=== PATIENT | male | born 1975 | race Hispanic/Latino ===

== ENCOUNTER 2024-05-30 10:32 | Emergency (ER) | payer OTHER, SELFPAY ==
--- OUTSIDE RECORDS SUMMARY | 2024-05-30 10:35 | XMS_ITS | Referral Summary ---
Author Organization [facility] Medical Office Building B Address [address] [place] [address] Care Team Providers Care Guest Service Manager Name Role Phone Leonid Matos POWER ELECTRONICS RESEARCH ENGINEER Unavailable [phone] Paul Ross MD Primary Care Provider [phone] Allergies No known active allergies Medications sildenafiL (VIAGRA) 100 mg tabletIndicatio ns:Erectile Dysfunction Take 1 tablet (100 mg total) by mouth daily as needed for erectile dysfunction (max of 1 per day) 20 tablet 11 04/18/20 21 Active multivitamin capsule Take 1 capsule by mouth daily Active testosterone cypionate (DEPO-TESTOTERO NE) 200 mg/mL injection INJECT ONE-HALF ML INTRAMUSCULARLY ONCE A WEEK 08/05/19 24 Active Active Problems Problem Noted Date Diagnosed Date Annual physical exam 02/26/2024 Assessment & Plan (02/26/2024 10:40 AM CDT): Discussed lifestyle modifications, diet and exercise. Routine blood work ordered/reviewed today. Yearly vision and dental examinations. Hyperpigmented skin lesion 11/06/2022 Assessment & Plan (11/06/2022 9:13 AM CDT): Currently at baseline, no acute flare. Referred to dermatology for further eval/mgmt. Family history of colon cancer 11/05/2022 Personal history of colonic polyps 11/05/2022 Mixed hyperlipidemia 09/06/2022 Assessment & Plan (02/26/2024 10:36 AM CDT): Lab Results Component Value Date CHOL 230 (H) 09/06/2022 CHOL 233 (H) 04/07/2018 Lab Results Component Value Date HDL 37 (L) 09/06/2022 HDL 40 04/07/2018 Lab Results Component Value Date LDLCALC 140 (H) 09/06/2022 LDLCALC 175 (H) 04/07/2018 Lab Results Component Value Date TRIG 267 (H) 09/06/2022 TRIG 92 04/07/2018 No results found for: POCCHDLR No results found for: POCNONHDL No results found for: POCCHLPL The 10-year ASCVD risk score (Sumanth ANDRE, et al., 2019) is: 3.1% Values used to calculate the score: Age: 48 years Sex: Male Is Non- : No Diabetic: No Tobacco smoker: No Systolic Blood Pressure: 110 mmHg Is BP treated: No HDL Cholesterol: 37 mg/dL Total Cholesterol: 230 mg/dL Recheck lipid panel and TSH Assessment & Plan (09/06/2022 11:16 AM CDT): Lab Results Component Value Date CHOL 233 (H) 04/07/2018 Lab Results Component Value Date HDL 40 04/07/2018 Lab Results Component Value Date LDLCALC 175 (H) 04/07/2018 Lab Results Component Value Date TRIG 92 04/07/2018 No results found for: POCCHDLR No results found for: POCNONHDL No results found for: POCCHLPL Not at goal Recheck lipid panel now Has been a few years If worse would recommend starting statin The ASCVD Risk score (Sumanth ANDRE, et al., 2019) failed to calculate for the following reasons: Cannot find a previous HDL lab Cannot find a previous total cholesterol lab Myalgia 03/02/2021 Assessment & Plan (03/03/2021 2:27 PM CDT): Urine dipstick done in office was negative for leukocytes, nitrites, blood or glucose. Specific gravity is 1.020. Increase water intake daily. Oral steroids prescribed to help with muscle pain. May use muscle relaxer bedtime as needed for muscle spasms. Erectile dysfunction 07/03/2019 Anxiety 07/03/2019 Assessment & Plan (09/06/2022 11:06 AM CDT): Stable - not concerns No longer taking his paxil Assessment & Plan (07/05/2019 6:42 PM CDT): Mild. Status post rotator cuff repair 06/03/2019 Arthritis of left acromioclavicular joint 2019 Overview (05/15/2019): Added automatically from request for surgery [id number] Bicipital tendinitis of left shoulder 05/15/2019 Overview (05/15/2019): Added automatically from request for surgery [id number] Impingement syndrome of left shoulder 05/15/2019 Overview (05/15/2019): Added automatically from request for surgery [id number] Chronic pain of left knee 01/03/2018 Overview (07/28/2018): S/p left arthroscopy surgery for torn cartilage 1999 Assessment & Plan (04/19/2020 2:40 PM MEDICAL NURSE): Worsening. Referred to ortho for further evaluation and management. In the meantime, patient may use ptqr-csk-zvqzxhl pain relievers of choice as needed. Zhvhw-kq-tmlbdg exercises demonstrated and encouraged. Assessment & Plan (07/28/2018 4:33 PM CDT): Referred to Ortho for further eval/tx. OTC pain reliever of choice. ROM exercises and strengthening exercises encouraged. Assessment & Plan (01/03/2018 12:45 PM CDT): Asx. Today, Rx for Ibuprofen given, use as directed. Follicular cyst of skin and subcutaneous tissue 12/03/2008 Resolved Problems Problem Noted Date Diagnosed Date Resolved Date Physical exam, annual 09/06/20222023 Assessment & Plan (02/26/2024 10:38 AM CDT): Discussed lifestyle modifications, diet and exercise. Routine blood work ordered/reviewed today. Yearly vision and dental examinations. Assessment & Plan (09/06/2022 11:01 AM CDT): Discussed lifestyle modifications, diet and exercise. Routine blood work ordered/reviewed today. Yearly vision and dental examinations. Right flank pain 03/02/2021 02/26/2024 Assessment & Plan (03/03/2021 2:27 PM CDT): Urine dipstick ordered. Left ankle swelling 03/02/2021 09/07/19 Assessment & Plan (03/03/2021 2:26 PM CDT): Elevate foot when possible. May use ice if ankle swells again. 20 minutes/hour as needed. Influenza vaccine refused 03/02/2021 Urinary frequency 07/03/2019 02/26/2024 Assessment & Plan (07/05/2019 6:42 PM CDT): Urine dipstick neg. Referred to urology for further eval/mgmt. Body mass index (BMI) of 33. 0 to 33.9 in adult 07/03/2019 02/26/2024 Assessment & Plan (09/06/2022 11:02 AM CDT): Wt Readings from Last 3 Encounters: 09/06/22 102.1 kg (225 lb) 11/22/21 102.1 kg (225 lb) 11/21/21 102.1 kg (225 lb) BMI Readings from Last 3 Encounters: 09/06/22 33.21 kg/m?? 01/03/22 33.23 kg/m?? 11/22/21 33.23 kg/m?? Not at goal of bmi <30 Continue diet and exercise BMI Follow-up includes: nutrition counseling and exercise counseling. Assessment & Plan (03/03/2021 2:27 PM CDT): Weight reduction, daily exercise and dietary modifications recommended. Assessment & Plan (04/19/2020 2:40 PM MEDICAL NURSE): Weight reduction, daily exercise and dietary modifications recommended. Traumatic tear of left rotat or cuff, subsequent encounter 05/15/2019 02/26/2024 Overview (05/15/2019): Added automatically from request for surgery [id number] Pure hypercholesterolemia 04/07/2018 Acute pain of left shoulder 01/03/2018 02/26/2024 Assessment & Plan (01/03/2018 12:45 PM CDT): Referred to Ortho for further eval/Tx. Ibuprofen 800 mg po q8h prn pain. Immunizations Name Administration Dates Next Due Influenza, Quadrivalent, Spl it, Intramuscular 01/08/2019 Influenza, Quadrivalent, Spl it, Preservative Free, Intramuscular 01/25/2020 Influenza, Unspecified 02/26/2024(Deferr ed: Patient Refused),06/27/2022(Deferred: Patient Refused),01/26/2018,04/17/2017 Tdap 04/07/2018,04/29/2002 Social History Tobacco Use Types Packs/Day Years Used Date Smoking Tobacco: Former Cigarettes Q uit: 2017 Smokeless Tobacco: Former Tobacco Cessation:Counseling Given: Not Answered Alcohol Use Standard Drinks/Week Comments Yes 0 (1 standard drink = 0.6 oz pur e alcohol) PHQ-2 Answer Date Recorded PHQ-2 Total Score (If total score is 3 or more points, staff should administer the PHQ-9) 0 02/26/2024 Personal Safety Answer Date Recorded Have you ever been in or are you currently in a harmful physical or emotional relationship or is someone making you feel afraid or unsafe? Denies 02/12/2023 Sex and Gender Information Value Date Recorded Sex Assigned at Not on file Legal Sex Male 6:11 AM MEDICAL NURSE Gender Identity Male 07/11/2020 7:39 AM CDT Sexual Orientation Straight 07/11/2020 7: 39 AM CDT Last Filed Vital Signs Vital Sign Reading Time Taken Comments Blood Pressure 110/78 02/26/2024 10:17 AM CDT Pulse 58 02/26/2024 10:17 AM CDT Temperature 36.9 ??C (98.4 ??F) 09/07/2023 4:23 PM CD T Respiratory Rate 16 02/26/2024 10:17 AM CDT Oxygen Saturation 98% 02/26/2024 10:17 AM CDT Inhaled Oxygen Concentration - - Weight 103.4 kg (228 lb) 02/26/2024 10:17 AM CDT Height 175.3 cm (5' 9.02 ) 02/26/2024 10:17 AM C DT Body Mass Index 33.65 02/26/2024 10:17 AM CDT Plan of Treatment Not on file Medical Devices Implanted Type Area Assembler Deck And Hull Device Identifier Shelf Expiration Date Model / Serial / Lot [employer] 2504-1 Regenerate Tendon [place] Suture - [id number] Implanted:Qty: 1 on 05/20/2019 by Pepe Mina MD at [facility] Left: Shoulder [employer] 02/24/2022 2504-1 / / [id number] [employer]/Or tho 4566 Implant Large Arthroscopic Bioinductive W/ Delivery Device - [id number] Implanted:Qty: 1 on 05/20/2019 by Pepe Mina MD at [facility] Left: Shoulder [employer]/Rich[employer]/Or tho 12/04/2021 [id number] / / [id number] Procedures Procedure Name Priority Date/Time Associated Diagnosis Comments COLONOSCOPY 02/12/2023 7:22 AM CDT from Last 3 Months or Most Recently Relevant to Health Maintenance Results * COLONOSCOPY (02/12/2023 7:22 AM CDT) Anatomical Region Laterality Modality Other Narrative Procedure Note Dom Barros MD - 02/12/2023 7:22 AM CDT [facility] Patient Name: Juan Parmar Procedure Date: 02/12/2023 7:22 AM Date of : 1975 Admit Type: Outpatient Age: 47 Gender: Male Attending MD: Dom Barros M.D. Room: [facility] ENDOSCOPY ROOM 1 Note Status: Finalized Patient Profile: This is a 47 year old male. History of polyps.Father had colon polyps. Uncle had colon cancer. Nospecific GI complaint. Procedure: Colonoscopy Indications: [facility]: Family history of 1st-degree relative with colon polyps, This is the patient's first colonoscopy,High risk colon cancer surveillance: Personal history of colonic polyps Referring MD: Nannette Cha D.O. Providers: Dom Barros M.D. Impression: - One 4 mm polyp in the ascending colon, removedwith a jumbo cold forceps. Resected and retrieved. - Internal hemorrhoids. Recommendation: - Await pathology results. - Repeat colonoscopy in 5 years for surveillance. Medicines: Monitored Anesthesia Care Complications: No immediate complications. Estimated Blood Loss: Estimated blood loss: none. Procedure: Pre-Anesthesia Assessment: - Prior to the procedure, a History and Physicalwas performed, and patient medications and allergieswere reviewed. The patient's tolerance of previous anesthesia was also reviewed. The risks andbenefits of the procedure and the sedation options and risks were discussed with the patient. All questions were answered, and informed consent was obtained. Prior Anticoagulants: The patient has taken noanticoagulant or antiplatelet agents. ASA Grade Assessment: I - A normal, healthy patient. After reviewing the risksand benefits, the patient was deemed in satisfactory condition to undergo the procedure. The benefits, risks and alternatives of theprocedure and sedation were discussed and informed consentwas obtained. All questions were answered. Please referto the signed informed consent document in the medical record. The scope was passed under direct vision.The Pediatric Colonoscope PCF-H190L [id number] was introduced through the anus and advanced to the the cecum, identified by appendiceal orifice andileocecal valve. The bowel preparation used was Miralax via split dose instruction. The bowel preparation usedwas bisacodyl tablets via split dose instruction. The quality of the bowel preparation was good. Bowelprep was administered using a split dose. Findings: The perianal and digital rectal examinations were normal. The cecum appeared normal. A 4 mm polyp was found in the ascending colon. The polyp was sessile. The polyp was removed with a jumbo cold forceps. Resection andretrieval were complete. The rectum, sigmoid colon, descending colon and transverse colon appeared normal. Internal hemorrhoids were found during retroflexion. The hemorrhoids were small. Electronically signed by Dom Barros M.D. Dom Barros M.D. 02/12/2023 9:02:04 AM Number of Addenda: 0 Note Initiated On: 02/12/2023 7:22 AM Procedure Code(s): --- Professional --- 40807, Colonoscopy, flexible; with biopsy, single or multiple Diagnosis Code(s): --- Professional --- Z83.71, Family history of colonic polyps Z86.010, Personal history of colonic polyps K64.8, Other hemorrhoids D12.2, Benign neoplasm of ascending colon CPT copyright 2020 [employer]. All rights reserved. The codes documented in this report are preliminary and upon manager pathology reviewmay be revised to meet current compliance requirements. Recognized by the [place] for promoting quality in endoscopy Dom Barros MD ENDOSCOPY PROCEDURES Final Result from Last 3 Months or Most Recently Relevant to Health Maintenance Insurance [address]O Address: [place] [address] [address]/PPO Address: [place] [address] [address] [facility] CHOICE PLUS [facility] H[facility]/PPO Address: [address] [place] [address] [place] [address] WORKERS COMPENSATION GENERIC WORKERS COMPENSATION GENERIC [place] [address] Advance Directives For more information, please contact: [phone] * Full Code (Latest Code Status on File) Date Activated Date Inactivated Comments 02/12/2023 7:13 AM 02/12/2023 1:17 PM * Full Code Date Activated Date Inactivated Comments 02/12/2023 7:13 AM 02/12/2023 7:13 AM Care Teams Guest Service Manager Relationship Specialty Start Date End Date Paul Ross MD [address] [place] [address] PCP - General Family Medicine 02/26/24 Leonid Matos NP [address] [place] [address] Nurse Practitioner Nurse Practitioner 05/20/19
--- OUTSIDE RECORDS SUMMARY | 2024-05-30 10:35 | XMS_ITS | Clinical Summary ---
Author Organization [facility] Medical Office Building B Address [address] [place] [address] Care Team Providers Care [employer] French Teacher Name Role Phone Leonid Matos SENIOR NET WEB DEVELOPER Unavailable [phone] Paul Ross MD Primary Care Provider [phone] Allergies No known active allergies Medications sildenafiL [...] (05/15/2019): Added automatically from request for surgery [id number] Bicipital tendinitis of left shoulder 05/15/2019 Overview (05/15/2019): Added automatically from request for surgery [id number] Impingement syndrome of left shoulder 05/15/2019 Overview (05/15/2019): Added automatically from request for surgery [id number] Chronic pain of left knee 01/03/2018 Overview (07/28/2018): S/p left arthroscopy surgery for torn cartilage 1999 Assessment & Plan (04/19/2020 2:40 PM COMMERCIAL REAL ESTATE BROKER): Worsening. Referred to ortho for further evaluation and management. In the meantime, patient may use itgc-erb-[id number] pain relievers of choice as needed. Hutor-uv-fwcffe exercises demonstrated and encouraged. Assessment & Plan [...] recommended. Assessment & Plan (04/19/2020 2:40 PM COMMERCIAL REAL ESTATE BROKER): Weight reduction, daily exercise and dietary modifications recommended. Traumatic tear of left rotat or cuff, subsequent encounter 05/15/2019 02/26/2024 Overview (05/15/2019): Added automatically from request for surgery [id number] Pure hypercholesterolemia 04/07/2018 Acute pain of left shoulder 01/03/2018 02/26/2024 Assessment & Plan (01/03/2018 12:45 PM CDT): Referred to Ortho for further eval/Tx. Ibuprofen 800 mg po q8h prn pain. Immunizations Name Administration Dates Next Due Influenza, Quadrivalent, Spl it, Intramuscular 01/08/2019 Influenza, Quadrivalent, Spl it, Preservative Free, Intramuscular 01/25/2020 Influenza, Unspecified 02/26/2024(Deferr ed: Patient Refused),06/27/2022(Deferred: Patient Refused),01/26/2018,04/17/2017 Tdap 04/07/2018,04/29/2002 Surgical History Surgery Date Site/Laterality Comments CYST REMOVAL 04/29/2016 - 04/28/2017 CYST REMOVAL 04/29/2015 - 04/28/2016 KNEE SURGERY SHOULDER SURGERY ROTATOR CUFF REPAIR 05/20/2019 KNEE ARTHROSCOPY 02/27/1999 - 03/28/1999 Left COLONOSCOPY 02/27/2018 - 03/28/2018 Family History Medical History Relation Name Comments COPD Father's Brother Throat cancer Maternal Grandfather Alzheimer's disease Maternal Grandmother Asthma Mother Relation Name Status Comments Father's Brother Maternal Grandfather Maternal Grandmother Mother Social History Tobacco Use Types Packs/Day Years [...] on file Legal Sex Male 6:11 AM COMMERCIAL REAL ESTATE BROKER Gender Identity Male 07/11/2020 7:39 AM CDT Sexual Orientation Straight 07/11/2020 7: 39 AM CDT Obstetrics History Last Filed Vital Signs Vital Sign Reading [...] 02/26/2024 10:17 AM CDT Plan of Treatment Health Maintenance Due Date Last Done Comments Hepatitis C Screening 1975 Hepatitis B Screening 12/02/1995 Influenza Vaccine (#1) 2023 , 01/08/2019, 01/26/2018, Additional history exists Depression Screening 02/25/2025 02/26/2024, 11/06/2022, 09/06/2022, Additional history exists Regular Well Visit/Exam 18-64 02/25/2025 02/26/2024, 09/06/2022, 04/07/2018 Colon Cancer Screening-Colonoscopy 02/13/2028 02/12/2023 DTaP/Tdap/Td Vaccine (3 - Td or Tdap) 04/07/2028 04/07/2018, 04/29/2002 HPV Vaccines Aged Out No longer eligi ble based on patient's age to complete this topic Pneumococcal vaccine <65 Aged Out No longer eligible based on patient's age to complete this topic Medical Devices Implanted Type Area Campus Recruiting Coordinator Device Identifier Shelf Expiration Date Model / Serial / Lot [employer] 2504-1 Regenerate Tendon [place] Suture - [id number] Implanted:Qty: 1 on 05/20/2019 by Pepe Mina MD at [facility] Left: Shoulder [employer] 02/24/2022 2504-1 / / [id number] [employer]/Or tho 4566 Implant Large Arthroscopic Bioinductive W/ Delivery Device - [id number] Implanted:Qty: 1 on 05/20/2019 by Pepe Mina MD at [facility] Left: Shoulder [employer]/Or tho 12/04/2021 [id number] / / [id number] Procedures Procedure Name Priority Date/Time Associated Diagnosis Comments COLONOSCOPY 02/12/2023 7:22 AM CDT from Last 3 Months or Most Recently Relevant to Health Maintenance Results * COLONOSCOPY (02/12/2023 7:22 AM CDT) Anatomical Region Laterality Modality Other Narrative Procedure Note Dom Barros MD - 02/12/2023 7:[address] [facility] Patient Name: Juan Parmar Procedure Date: 02/12/2023 7:22 AM Date of : 1975 Admit Type: Outpatient Age: 47 Gender: Male Attending MD: Dom Barros M.D. Room: [facility] ENDOSCOPY ROOM 1 Note Status: Finalized Patient Profile: This is a 47 year old male. History of polyps.Father had colon polyps. Uncle had colon cancer. Nospecific GI complaint. Procedure: Colonoscopy Indications: [facility] Family history of 1st-degree relative with colon [...] passed under direct vision.The Pediatric Colonoscope PCF-H190L [id number] was introduced through the anus and advanced [...] 7:22 AM Procedure Code(s): --- Professional --- 01883, Colonoscopy, flexible; with biopsy, single or multiple Diagnosis Code(s): --- Professional --- Z83.71, Family history of colonic polyps Z86.010, Personal history of colonic polyps K64.8, Other hemorrhoids D12.2, Benign neoplasm of ascending colon CPT copyright 2020 [employer]. All rights reserved. The codes documented in this report are preliminary and upon managing editor reviewmay be revised to meet current compliance requirements. Recognized by the [place] for promoting quality in endoscopy Dom Barros MD ENDOSCOPY PROCEDURES Final Result from Last 3 Months or Most Recently Relevant to [place] [address] [facility] [place] [address] [facility] [place] [address] [facility] [place] [address] [employer] [place] [address] [place] [address] [address] [place] [address] Advance Directives For more information, please contact: [phone] * Full Code (Latest Code Status on File) Date Activated Date Inactivated Comments 02/12/2023 7:13 AM 02/12/2023 1:17 PM * Full Code Date Activated Date Inactivated Comments 02/12/2023 7:13 AM 02/12/2023 7:13 AM Care Teams [employer] French Teacher Relationship Specialty Start Date End Date Paul Ross MD [address] [place] [address] [place] [address] PCP - General Family Medicine 02/26/24 Leonid Matos NP [address] [place] [address] [address] [place], [place] [address] [address] Nurse Practitioner Nurse Practitioner 05/20/19
--- OUTSIDE RECORDS SUMMARY | 2024-05-30 10:38 | XMS_ITS | Referral Summary ---
Author Organization [facility] Address [address] [place] [address] Care Team Providers Care Restaurant Area Director Name Role Phone Abhay Vu MD Primary Care Provider Source Comments [facility],non-owned Affiliates and Associated Physician Practices is amultiple site organization consisting of ambulatory clinics and hospital sitesin [place], [place], [place] and [place]. This disclosure is being madepursuant to the Care Everywhere program and may not contain all information available regarding this patient. Last updated 18.[facility] Active Problems Problem Noted Date Diagnosed Date Follicular cyst of skin and subcutaneous tissue 12/03/2008 Immunizations Name Administration Dates Next Due TDAP (7yrs+) 04/29/2002 Social History Tobacco Use Types Packs/Day Years Used Date Smoking Tobacco: Former Cigarettes Q uit: 04/29/2004 Smokeless Tobacco: Former Quit: 02/23/2004 Alcohol Use Standard Drinks/Week Comments Yes 16.7 (1 standard drink = 0.6 oz pure alcohol) Sex and Gender Information Value Date Recorded Sex Assigned at Not on file Gender Identity Not on file Sexual Orientation Not on file Last Filed Vital Signs Vital Sign Reading Time Taken Comments Blood Pressure 118/70 01/07/2013 8:42 AM CDT Pulse 74 01/07/2013 8:42 AM CDT Temperature 36.3 ??C (97.3 ??F) 01/07/2013 8:42 AM CD T Respiratory Rate 16 01/07/2013 8:42 AM CDT Oxygen Saturation - - Inhaled Oxygen Concentration - - Weight 96.2 kg (212 lb) 01/07/2013 8:42 AM CDT Height 175.3 cm (5' 9 ) 01/07/2013 8:42 AM CDT Body Mass Index 31.31 01/07/2013 8:42 AM CDT Plan of Treatment Not on file Care Teams Restaurant Area Director Relationship Specialty Start Date End Date Abhay Vu MD [address] [facility] [address] [place] [id number] PCP - General 03/04/17
--- OUTSIDE RECORDS SUMMARY | 2024-05-30 10:38 | XMS_ITS | Clinical Summary ---
Author Organization [facility] Address [address] [place] [address] Care Team Providers Care Street Superintendent Name Role Phone Abhay Vu MD Primary Care Provider Source Comments [facility],non-owned Affiliates and Associated Physician Practices is amultiple site organization consisting of ambulatory clinics and hospital sitesin [place], [place], [place] and [place]. This disclosure is being madepursuant to the Care Everywhere program and may not contain all information available regarding this patient. Last updated 18.[facility] Active Problems Problem Noted Date Diagnosed Date Follicular cyst of skin and subcutaneous tissue 12/03/2008 Immunizations Name Administration Dates Next Due TDAP (7yrs+) 04/29/2002 Family History Medical History Relation Name Comments Migraine Brother Status: Alive None Known Father Status: Alive Asthma Mother Status: Alive None Known Sister Status: Alive Relation Name Status Comments Brother Father Mother Sister Social History Tobacco Use Types Packs/Day Years [...] 01/07/2013 8:42 AM CDT Plan of Treatment Health Maintenance Due Date Last Done Comments COLOGUARD (AGES 45-75) - COL ON CA SCREENING 1977 COLON MONITORING 1977 COLONOSCOPY - COLON CA SCREENING 1977 CT COLONOGRAPHY - COLON CA SCREENING 1975 Colorectal Cancer Screening 1977 FIT - COLON CA SCREENING 1977 FLEX SIG - COLON CA SCREENING 1977 LIPID TESTING 1977 HIV SCREENING 1992 HEPATITIS C SCREENING 11/27/1995 HEPATITIS B VACCINE (1 of 3 - 19+ 3-dose series) 1996 DTAP/TDAP/TD VACCINES (2 - T d or Tdap) 04/29/2012 04/29/2002 COVID-19 VACCINE ( - 2023-2 5 season) 2023 INFLUENZA VACCINE (#1) 2023 DEPRESSION SCREENING 04/29/2024 ZOSTER VACCINE (1 of 2) 12/02/2027 HIB VACCINE Aged Out No longer eligi ble based on patient's age to complete this topic HPV VACCINE Aged Out No longer eligi ble based on patient's age to complete this topic MENINGOCOCCAL (Group B) VACCINE Aged Out No longer eligible based on patient's age to complete this topic MENINGOCOCCAL VACCINE Aged Out No edgard gemma eligible based on patient's age to complete this topic PNEUMOCOCCAL VACCINE Aged Out No long er eligible based on patient's age to complete this topic Care Teams Street Superintendent Relationship Specialty Start Date End Date Abhay Vu MD [address] [place] [id number] PCP - General 03/04/17
--- OUTSIDE RECORDS SUMMARY | 2024-05-30 10:38 | XMS_ITS | Patient Health Summary ---
Author Organization [facility] Address [address] [address] Care Team Providers Care Fuel Cell Builder Name Role Phone Abhay Vu MD Primary Care Provider Note from [facility],non-owned Affiliates and Associated Physician Practices is amultiple site organization consisting of ambulatory clinics and hospital sitesin [place], [place], [place] and [place]. This disclosure is being madepursuant to the Care Everywhere program and may not contain all information available regarding this patient. Last updated 18.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 12/03/2008 Immunizations * TDAP (7yrs+)(Given 04/29/2002) Social History Tobacco Use Types Packs/Day Years [...] Mass Index 31.31 01/07/2013 8:42 AM CDT Procedures * CBC W AUTO DIFFERENTIAL(Performed 01/25/2011) * URINALYSIS - POINT OF CARE (AMB) [facility](Performed 01/25/2011) * PATHOLOGY/GENETICS HISTORICAL-ONBASE(Performed 02/04/2009) * URINALYSIS - POINT OF CARE (AMB) [facility](Performed 04/29/1998) Results * CBC W AUTO DIFFERENTIAL (01/25/2011 2:55 PM CDT) WBC 7.3 3.5 - 10.5 10^3/uL [facility] RBC 5.29 4.30 - 5.70 10^6/uL [facility] Hemoglobin 16.4 13.5 - 17.5 g/dL [facility] Hematocrit 46.8 39.0 - 50.0 % [facility] MCV 88.5 81.0 - 97.0 FL [facility] Comment: * ??PLEASE NOTE NEW REFERENCE RANGE * MCH 31.0 28.0 - 34.0 PG [facility] MCHC 35.0 32.0 - 36.0 G/DL [facility] Platelet 257 150 - 400 10^3/uL [facility] RDW 12.1 11.2 - 14.8 % [facility] RDW-SD 38.4 36 - 50 FL [facility] Comment: * ??PLEASE NOTE NEW REFERENCE RANGE * MPV 10.5 9.3 - 12.8 FL [facility] Neutrophils % 65.5 35.0 - 70.0 % [facility] Lymphocytes % 24.5 19.7 - 55.1 % [facility] Monocytes % 8.4 3 - 15 % [facility] Eosinophils % 1.1 0.0 - 6.0 % [facility] Basophils % 0.5 0.0 - 1.5 % [facility] Neutrophils Absolute 4.8 1.7 - 7.0 10^3/uL [facility] Comment: * ??PLEASE NOTE NEW REFERENCE RANGE * Lymphocyte Absolute 1.8 0.8 - 2.9 10^3/uL [facility] Comment: * ??PLEASE NOTE NEW REFERENCE RANGE * Monocytes Absolute 0.6 0.14 - 0.66 10^3/uL [facility] Eosinophils Absolute 0.08 0.00 - 0.22 10^3/uL [facility] Basophils Absolute 0.04 0.02 - 0.06 10^3/uL [facility] Differential Type AUTO DIFFERENTIAL [facility] 01/25/2011 2:55 PM CDT 01/25/2011 3:02 PM CDT Christopher Ernst MD LAB - HEMATOLOGY ORD ERABLES [facility] [address] [place] [address] * URINALYSIS - POINT OF CARE (AMB) U (01/25/2011 1:19 PM CDT) Only the most recent of2 resultswithin the time period is included. Glucose UA neg [facility] Bilirubin UA POCT neg [facility] Ketones UA POCT neg [facility] Specific [place] UA 1.015 [facility] Blood Urine POCT neg [facility] pH UA 7.5 [facility] Protein UA neg [facility] Urobilinogen UA 1.0 [facility] Nitrite UA neg [facility] WBC UA neg [facility] Urine specimen (specimen) 01/25/2011 1:19 PM CDT Christopher Ernst MD LAB - POINT OF CARE ORDERABLES [facility] * PATHOLOGY/GENETICS HISTORICAL-ONBASE (02/04/2009) 02/04/[address] [facility] - 02/04/2009 4:04 PM CDT Ordered by an unspecified provider. [facility] Provider LAB - CHEMISTRY O RDERABLES [facility] Care Teams Fuel Cell Builder Relationship Specialty Start Date End Date Abhay Vu MD [address] [place] [address] [address] [place] [address] PCP - General 03/04/17
[2024-05-30 10:49] VITALS: BP 106/63; PULSE 84; RESP 16; TEMP 37; O2SAT 95
--- NOTE | 2024-05-30 11:28 | ED_ITS ---
HPI - URI/Sore Throat General Chief Complaint: Upper Respiratory Infection Stated Complaint: Fever/Body Aches/Congestion Time Seen by Provider: 05/30/24 11:10 Source: patient, RN notes reviewed and old records reviewed Mode of arrival: ambulatory Limitations: no limitations History of Present Illness HPI Narrative: 48 year old male with complaints of chest congestion,fevers, threw up X1, body aches, nasal congestion since evening, Patient reports that daughter +flu and other family member has COVID. Patient reports that he has been taking Tylenol for body aches and fevers. Patient requesting RX for Tamiflu. MD elicited complaint: cough, rhinorrhea, nasal congestion and other (body aches) Onset (ago): day(s) (2) Severity: moderate Able to tolerate fluids by mouth: Yes Treatments prior to arrival: acetaminophen Related Data Home Medications ?Medication ?Instructions ?Recorded ?Confirmed ?Last Taken ?Type testosterone cypionate 200 mg/mL mg 05/30/24 Unknown History intramuscular oil Allergies Allergy/AdvReac Type Severity Reaction Status Date / Time No Known Allergies Allergy Verified 05/30/24 11:05 Review of Systems 2 Review of Systems: CONSTITUTIONAL: Reports malaise, chills, sweats, or fever. EYES: Denies visual changes, redness, or discharge. ENT: Reports rhinorrhea, congestion, sinus pain, no otalgia and no sore throat. CARDIOVASCULAR: Denies chest pain, palpitations, or edema. RESPIRATORY: Reports cough.? Denies dyspnea. GASTROINTESTINAL: Denies abdominal pain, denies any present nausea, vomiting, diarrhea, states emesis X1 but no further since then, able to take fluids and food SKIN: Denies rash or itching. MUSCULOSKELETAL: reports myalgia. NEUROLOGIC: Denies headache. All systems reviewed & are unremarkable except as noted in HPI and below PMFSH Surgical History Surgical History S/P left knee arthroscopy Status post left rotator cuff repair Family History Family History Mother Asthma Family history of arthritis Family history of allergic disorder Sibling Asthma Grandparent Carcinoma of colon Family history of heart disease in male family member before age 55 Social History Social History Smoking status: Former smoker Second hand tobacco smoke exposure: No Smoking end date: 04/29/03 Alcohol intake: current Comments At time of signature, agree with nursing past medical, surgical, social and family history. There is no relevant family history pertinent to the presenting complaint Exam Narrative: GENERAL: Well-appearing, well-nourished, and in no acute distress. HEAD: Normocephalic EYES: PERRLA, conjunctivae clear ENT: Nares clear, turbinates edematous and erythematous, clear discharge. Mucous membranes moist. TM pearly suero with dull light reflex bilaterally; no tragal tenderness. Oropharynx erythematous without lesions. Tonsils not enlarged and without exudate, no drooling, no hoarseness, no trismus, uvula midline.post nasal drainage NECK: Supple. No lymphadenopathy CHEST: Clear to auscultation, breath sounds equal. No wheezing, rhonchi, rales, or stridor. No respiratory distress, speaks in full sentences.cough noted SAO2 95% on room air HEART: Regular rate and rhythm. No murmur heard. SKIN: Warm, dry, no rash. NEURO: Alert and oriented x3. PSYCH: Normal mood and affect Course Course Emergency Course: Patient is aware of diagnosis, understands and agrees to treatment plan.? Anticipatory guidance given.? Patient agrees to follow-up as directed and is aware of reasons to seek care at the emergency department. Portions of this record may have been created with voice recognition software Level of Care: Express Care Visit Vital Signs Vital signs: Vital Signs Temperature 37.0 C 05/30/24 10:49 Pulse Rate 84 05/30/24 10:49 Respiratory Rate 16 05/30/24 10:49 Blood Pressure 106/63 05/30/24 10:49 Pulse Oximetry 95 05/30/24 10:49 Oxygen Delivery Room Air 05/30/24 10:49 Temperature 37.0 C 05/30/24 10:49 Pulse Rate 84 05/30/24 10:49 Respiratory Rate 16 05/30/24 10:49 Blood Pressure 106/63 05/30/24 10:49 Pulse Oximetry 95 05/30/24 10:49 Oxygen Delivery Room Air 05/30/24 10:49 Reviewed MDM - URI/Sore Throat MDM Narrative Medical decision making narrative: Differential diagnosis considered: Cochran virus, strep pharyngitis, allergic rhinitis, upper respiratory tract infection, sinusitis, rhinosinusitis, nasopharyngitis. viral pharyngitis, otitis media, otitis externa, pneumonia, bronchitis, viral cough syndrome, viral syndrome, and influenza.? Exam findings show no acute concerns or changes; patient is non-toxic appearing and is in no distress.? Patient is appropriate for outpatient treatment and follow-up. Differential Diagnosis Differential diagnosis: Likely upper respiratory infection, sinusitis, viral infection, influenza and other (COVID) Medical Records Attestation: I reviewed the patient's medical records. Lab Data Attestation: I reviewed the patient's lab results. Lab results narrative: Influenza A positive, Influenza B negative, Covid antigen negative Labs: Lab Results 05/30/24 Range/Units 10:38 POC Influenza A Ag Positive (Negative) POC Influenza B Ag Negative (Negative) POC SARS CoV-2 Ag Negative (Negative) Critical Care Time Critical Care Time Critical Care Time: No Discharge Plan Discharge Clinical Impression: Influenza A Patient Disposition: Home, Self-Care Condition: Stable Instructions: Influenza (ED) Additional Instructions: Increase fluids especially juices and water Ztgy-qxy-gyazxgk cough and cold medicine of your choice for your symptoms Tylenol or ibuprofen for any fever pain Cough tablets as directed for cough--do not bite, chew or suck on--swallow whole Zyrtec,Claritin or [place] daily heat to the face 20-30 minutes 4-6 times a day for pain Salt water gargles, throat lozenges or throat sprays as desired Must quarantine, must be fever free for 24 hours without use of Tylenol or ibuprofen before you can return to work Monitor fever Patient Language: Kinyarwanda Prescriptions: New oseltamivir [Tamiflu] 75 mg capsule 75 mg PO Q12H 5 Days Qty: 10 0RF No Action testosterone cypionate 200 mg/mL oil Follow-up/Referrals: PHYSICIAN NOT ON STAFF,NONSTAFF [Primary Care Provider] - Stand Alone Forms: Work/School Release IP Time of Disposition: 11:35 Quality [place] Coma Scale Eyes: Open Verbal: Oriented and Alert Motor: Follows Commands [place] Coma Total Score: 15
[2024-05-30 11:44] LABS: EDCOVIDSCREEN Negative (Negative); EDINFLUASCREEN Positive (Negative); EDINFLUBSCREEN Negative (Negative)
== END 2024-05-30 11:38 | disposition home or self-care (01) ==
PROVIDERS: Emergency Provider Registered Nurse
DX: J10.1 Influenza due to other identified influenza virus with other respiratory manifestations (principal); Z20.822 Contact with and (suspected) exposure to COVID-19; Z87.891 Personal history of nicotine dependence
CPT/HCPCS: 87426; 87804; 99203; G0463

== ENCOUNTER 2024-06-07 12:10 | Emergency (ER) | payer OTHER, SELFPAY ==
--- OUTSIDE RECORDS SUMMARY | 2024-06-07 12:12 | XMS_ITS | Referral Summary ---
Author Organization [facility] Address [address] [place] [address] Care Team Providers Care Circus Rider Name Role Phone Leonid Matos NP Unavailable [phone] Paul Ross MD Primary Care Provider [phone] Encounters Date Type Department Care Team Description 06/01/2024 Orders Only [facility] at [place] [address] [place] [address] Paul Ross MD from Last 3 Months Allergies No known active allergies Medications sildenafiL [...] INTRAMUSCULARLY ONCE A WEEK 08/05/19 24 Active oseltamivir (TAMIFLU) 75 mg capsuleIndicati ons:Influenza Take 1 capsule (75 mg total) by mouth 2 (two) times a day for 5 days 10 capsule 06/01/19 25 025 Active Problems Problem Noted Date Diagnosed Date [...] (05/15/2019): Added automatically from request for surgery [id number] Bicipital tendinitis of left shoulder 05/15/2019 Overview (05/15/2019): Added automatically from request for surgery [id number] Impingement syndrome of left shoulder 05/15/2019 Overview (05/15/2019): Added automatically from request for surgery [id number] Chronic pain of left knee 01/03/2018 Overview (07/28/2018): S/p left arthroscopy surgery for torn cartilage 1999 Assessment & Plan (04/19/2020 2:40 PM OIL WELL PUMPER): Worsening. Referred to ortho for further evaluation and management. In the meantime, patient may use cotr-pkt-gwldeap pain relievers of choice as needed. Xlpvg-fv-hkkbvd exercises demonstrated and encouraged. Assessment & Plan [...] Readings from Last 3 Encounters: 09/06/22 33.21 kg/m 01/03/22 33.23 kg/m 11/22/21 33.23 kg/m Not at goal of bmi <30 Continue diet and exercise BMI Follow-up includes: nutrition counseling and exercise counseling. Assessment & Plan (03/03/2021 2:27 PM CDT): Weight reduction, daily exercise and dietary modifications recommended. Assessment & Plan (04/19/2020 2:40 PM OIL WELL PUMPER): Weight reduction, daily exercise and dietary modifications recommended. Traumatic tear of left rotat or cuff, subsequent encounter 05/15/2019 02/26/2024 Overview (05/15/2019): Added automatically from request for surgery [id number] Pure hypercholesterolemia 04/07/2018 Acute pain of left [...] on file Legal Sex Male 6:11 AM OIL WELL PUMPER Gender Identity Male 07/11/2020 7:39 AM CDT Sexual Orientation Straight 07/11/2020 7: 39 AM CDT Last Filed Vital Signs Vital Sign Reading Time Taken Comments Blood Pressure 110/78 02/26/2024 10:17 AM CDT Pulse 58 02/26/2024 10:17 AM CDT Temperature 36.9 C (98.4 F) 09/07/2023 4:23 PM CDT Respiratory Rate 16 02/26/2024 10:17 AM CDT Oxygen Saturation 98% 02/26/2024 10:17 AM CDT Inhaled Oxygen Concentration - - Weight 103.4 kg (228 lb) 02/26/2024 10:17 AM CDT Height 175.3 cm (5' 9.02 ) 02/26/2024 10:17 AM C DT Body Mass Index 33.65 02/26/2024 10:17 AM CDT Plan of Treatment Not on file Medical Devices Implanted Type Area Sharebroker Device Identifier Shelf Expiration Date Model / Serial / Lot [employer] 2504-1 Regenerate Tendon Wilmer Suture - [id number] Implanted:Qty: 1 on 05/20/2019 by Pepe Mina MD at [facility] Left: Shoulder [employer] 02/24/2022 2504-1 / / [id number] [employer] tho 4566 Implant Large Arthroscopic Bioinductive W/ Delivery Device - [id number] Implanted:Qty: 1 on 05/20/2019 by Pepe Mina MD at [facility] Left: Shoulder [employer] tho 12/04/2021 [id number] / / [id number] Procedures Procedure Name Priority Date/Time Associated Diagnosis Comments COLONOSCOPY 02/12/2023 7:22 AM CDT from Last 3 Months or Most Recently Relevant to Health Maintenance Results * COLONOSCOPY (02/12/2023 7:22 AM CDT) Anatomical Region Laterality Modality Other Narrative Procedure Note Dom Barros MD - 02/12/2023 7:22 AM CDT [facility] Patient Name: Juan Parmar Procedure Date: 02/12/2023 7:22 AM Date of : 1975 Admit Type: Outpatient Age: 47 Gender: Male Attending MD: Dom Barros M.D. Room: [facility] ENDOSCOPY ROOM 1 Note Status: Finalized Patient Profile: This is a 47 year old male. History of polyps.Father had colon polyps. Uncle had colon cancer. Nospecific GI complaint. Procedure: Colonoscopy Indications: [facility] Family history of 1st-degree relative with colon [...] passed under direct vision.The Pediatric Colonoscope [id number] was introduced through the anus and advanced [...] 7:22 AM Procedure Code(s): --- Professional --- 96834, Colonoscopy, flexible; with biopsy, single or multiple Diagnosis Code(s): --- Professional --- Z83.71, Family history of colonic polyps Z86.010, Personal history of colonic polyps K64.8, Other hemorrhoids D12.2, Benign neoplasm of ascending colon CPT copyright 2020 [employer]. All rights reserved. The codes documented in this report are preliminary and upon rig hand reviewmay be revised to meet current compliance requirements. Recognized by the [employer] for promoting quality in endoscopy Dom Barros MD ENDOSCOPY PROCEDURES Final Result from Last 3 Months or Most Recently Relevant to Health Maintenance Insurance UHC CHOICE PLUS UHC CHOICE PLUS [facility] CHOICE PLUS WORKERS COMPENSATION GENERIC WORKERS COMPENSATION GENERIC WORKERS [place] [address] Advance Directives For more information, please contact: [phone] * Full Code (Latest Code Status on File) Date Activated Date Inactivated Comments 02/12/2023 7:13 AM 02/12/2023 1:17 PM * Full Code Date Activated Date Inactivated Comments 02/12/2023 7:13 AM 02/12/2023 7:13 AM Care Teams Circus Rider Relationship Specialty Start Date End Date Paul Ross MD [address] [place] [address] PCP - General Family Medicine 02/26/24 eLonid Matos NP [address] [place] [address] Nurse Practitioner Nurse Practitioner 05/20/19
--- OUTSIDE RECORDS SUMMARY | 2024-06-07 12:12 | XMS_ITS | Clinical Summary ---
Author Organization [facility] Address [address] [place] [address] Care Team Providers Care Smoke And Flame Specialist Name Role Phone Abhay Vu MD Primary Care Provider Source Comments [facility],non-owned Affiliates and Associated Physician Practices is amultiple site organization consisting of ambulatory clinics and hospital sitesin [place], [place], [place] and [place]. This disclosure is being madepursuant to the Care Everywhere program and may not contain all information available regarding this patient. Last updated 18.[facility] Active Problems Problem Noted Date Diagnosed Date [...] 76 01/07/2013 8:42 AM CDT Temperature 36.3 C (97.3 F) 01/07/2013 8:42 AM CDT Respiratory Rate 16 01/07/2013 8:42 AM CDT [...] age to complete this topic Care Teams Smoke And Flame Specialist Relationship Specialty Start Date End Date Abhay Vu MD [address] [place] [id number] PCP - General 03/04/17
--- OUTSIDE RECORDS SUMMARY | 2024-06-07 12:12 | XMS_ITS | Clinical Summary ---
Author Organization [facility] Medical Office Building B Address [address] [place] [address] Care Team Providers Care Sand Mixer Machine Name Role Phone Leonid Matos CHARGE ENTRY SPECIALIST Unavailable [phone] Paul Ross MD Primary Care Provider [phone] Allergies No known active allergies Medications sildenafiL [...] (05/15/2019): Added automatically from request for surgery [id number] Bicipital tendinitis of left shoulder 05/15/2019 Overview (05/15/2019): Added automatically from request for surgery [id number] Impingement syndrome of left shoulder 05/15/2019 Overview (05/15/2019): Added automatically from request for surgery [id number] Chronic pain of left knee 01/03/2018 Overview (07/28/2018): S/p left arthroscopy surgery for torn cartilage 1999 Assessment & Plan (04/19/2020 2:40 PM AUTO PARTS COUNTER PERSON): Worsening. Referred to ortho for further evaluation and management. In the meantime, patient may use zbjy-xyr-qtfznuu pain relievers of choice as needed. Dwgau-ce-qekyrh exercises demonstrated and encouraged. Assessment & Plan [...] recommended. Assessment & Plan (04/19/2020 2:40 PM AUTO PARTS COUNTER PERSON): Weight reduction, daily exercise and dietary modifications recommended. Traumatic tear of left rotat or cuff, subsequent encounter 05/15/2019 02/26/2024 Overview (05/15/2019): Added automatically from request for surgery [id number] Pure hypercholesterolemia 04/07/2018 Acute pain of left shoulder 01/03/2018 02/26/2024 Assessment & Plan (01/03/2018 12:45 PM CDT): Referred to Ortho for further eval/Tx. Ibuprofen 800 mg po q8h prn pain. Encounters Date Type Department Care Team Description 06/01/2024 Orders Only [facility] Primary Care at [address] [place] [address] Paul Ross MD from Last 3 Months Immunizations Name Administration Dates Next Due Influenza, [...] on file Legal Sex Male 6:11 AM AUTO PARTS COUNTER PERSON Gender Identity Male 07/11/2020 7:39 AM CDT [...] this topic Medical Devices Implanted Type Area Superintendent Recreation Device Identifier Shelf Expiration Date Model / Serial / Lot [employer] 2504-1 Regenerate Tendon [place] Suture - [id number] Implanted:Qty: 1 on 05/20/2019 by Pepe Mina MD at [facility] Left: Shoulder [employer] 02/24/2022 2504-1 / / [id number] [employer]/Or tho 4566 Implant Large Arthroscopic Bioinductive W/ Delivery Device - [id number] Implanted:Qty: 1 on 05/20/2019 by Pepe Mina MD at [facility] Left: Shoulder [employer] tho 12/04/2021 [id number] / / [id number] Procedures Procedure Name Priority Date/Time Associated Diagnosis Comments COLONOSCOPY 02/12/2023 7:22 AM CDT from Last 3 Months or Most Recently Relevant to Health Maintenance Results * COLONOSCOPY (02/12/2023 7:22 AM CDT) Anatomical Region Laterality Modality Other Narrative Procedure Note Dom Barros MD - 02/12/2023 7:22 AM CDT [facility] Patient Name: Varun Parmar Procedure Date: 02/12/2023 7:22 AM Date of : 1975 Admit Type: Outpatient Age: 47 Gender: Male Attending MD: Dom Barros M.D. Room: [facility] ENDOSCOPY ROOM 1 Note Status: Finalized Patient Profile: This is a 47 year old male. History of polyps.Father had colon polyps. Uncle had colon cancer. Nospecific GI complaint. Procedure: Colonoscopy Indications: [facility] Family history of 1st-degree relative with [...] passed under direct vision.The Pediatric Colonoscope [id number]-[id number] was introduced through the anus and advanced [...] 7:22 AM Procedure Code(s): --- Professional --- 09226, Colonoscopy, flexible; with biopsy, single or multiple Diagnosis Code(s): --- Professional --- Z83.71, Family history of colonic polyps Z86.010, Personal history of colonic polyps K64.8, Other hemorrhoids D12.2, Benign neoplasm of ascending colon CPT copyright 2020 [employer]. All rights reserved. The codes documented in this report are preliminary and upon hims coder reviewmay be revised to meet current compliance requirements. Recognized by the [place] [employer] for promoting quality in endoscopy Dom Barros MD ENDOSCOPY PROCEDURES Final Result from Last 3 Months or Most Recently Relevant to Health [place] [address] [facility] CHOICE PL[employer] [facility] HMO/PPO Address: [address] [address] [place] [address] [address] [facility] [address] [facility] CHOICE [employer] [facility] HMO/PPO Address: [address] [address] [place] [id number] [address] CHOICE [employer] [facility] HMO/PPO Address: [address] [address] [place] [address] [place] [address] WORKERS COMPENSATION GENERIC WORKERS COMPENS[employer] [place] [address] [place] [address] Advance Directives For more information, please contact: [phone] * Full Code (Latest Code Status on File) Date Activated Date Inactivated Comments 02/12/2023 7:13 AM 02/12/2023 1:17 PM * Full Code Date Activated Date Inactivated Comments 02/12/2023 7:13 AM 02/12/2023 7:13 AM Care Teams Sand Mixer Machine Relationship Specialty Start Date End Date Paul Ross MD [address] [place] [address] PCP - General Family Medicine 02/26/24 Leonid Matos NP [address] [place] [address] Nurse Practitioner Nurse Practitioner 05/20/19
--- OUTSIDE RECORDS SUMMARY | 2024-06-07 12:12 | XMS_ITS | Referral Summary ---
Author Organization [facility] Address [address] [place] [address] Care Team Providers Care Chief Operator Lock Tender Name Role Phone Abhay Vu MD Primary Care Provider Source Comments [facility],non-owned Affiliates and Associated Physician Practices is amultiple site organization consisting of ambulatory clinics and hospital sitesin [place], [place], [place] and [place]. This disclosure is being madepursuant to the Care Everywhere program and may not contain all information available regarding this patient. Last updated 18.[facility] Active Problems Problem Noted Date Diagnosed [...] of Treatment Not on file Care Teams Chief Operator Lock Tender Relationship Specialty Start Date End Date Abhay Vu MD [address] [place] [address] [address] [place] [address] PCP - General 03/04/17
--- OUTSIDE RECORDS SUMMARY | 2024-06-07 12:12 | XMS_ITS | Patient Health Summary ---
Author Organization [facility] Address [address] [place] [address] Care Team Providers Care Captain Of Guards Name Role Phone Abhay Vu MD Primary Care Provider [phone] Note from [facility],non-owned Affiliates and Associated Physician Practices is amultiple site organization consisting of ambulatory clinics and hospital sitesin [place], [place]. This disclosure is being madepursuant to the Care Everywhere program and may not contain all information available regarding this patient. Last updated 18.[facility] Active Problems Problem Noted Date Diagnosed Date [...] CDT) WBC 7.3 3.5 - 10.5 10^3/uL [facility] RBC 5.29 4.30 - 5.70 10^6/uL [facility] Hemoglobin 16.4 13.5 - 17.5 g/dL [facility] Hematocrit 46.8 39.0 - 50.0 % [facility] MCV 88.5 81.0 - 97.0 FL [facility] Comment: * PLEASE NOTE NEW REFERENCE RANGE * MCH 31.0 28.0 - 34.0 PG [facility] MCHC 35.0 32.0 - 36.0 G/DL [facility] Platelet 257 150 - 400 10^3/uL [facility] RDW 12.1 11.2 - 14.8 % [facility] RDW-SD 38.4 36 - 50 FL [facility] Comment: * PLEASE NOTE NEW REFERENCE RANGE * MPV 10.5 9.3 - 12.8 FL [facility] Neutrophils % 65.5 35.0 - 70.0 % [facility] Lymphocytes % 24.5 19.7 - 55.1 % [facility] Monocytes % 8.4 3 - 15 % [facility] Eosinophils % 1.1 0.0 - 6.0 % [facility] Basophils % 0.5 0.0 - 1.5 % [facility] Neutrophils Absolute 4.8 1.7 - 7.0 10^3/uL [facility] Comment: * PLEASE NOTE NEW REFERENCE RANGE * Lymphocyte Absolute 1.8 0.8 - 2.9 10^3/uL [facility] Comment: * PLEASE NOTE NEW REFERENCE RANGE * Monocytes Absolute 0.6 0.14 - 0.66 10^3/uL [facility] Eosinophils Absolute 0.08 0.00 - 0.22 10^3/uL [facility] Basophils Absolute 0.04 0.02 - 0.06 10^3/uL [facility] Differential Type AUTO DIFFERENTIAL [facility] 01/25/2011 2:55 PM CDT 01/25/2011 3:02 PM CDT Christopher Ernst MD LAB - HEMATOLOGY ORD ERABLES [address] [phone] * URINALYSIS - POINT OF CARE (AMB) U (01/25/2011 1:19 PM CDT) Only the most recent of2 resultswithin the time period is included. Glucose UA neg [facility] Bilirubin UA POCT neg [facility] Ketones UA POCT neg [facility] Specific [place] UA 1.015 [facility] Blood Urine POCT neg [facility] pH UA 7.5 [facility] Protein UA neg [facility] Urobilinogen UA 1.0 [facility] Nitrite UA neg [facility] WBC UA neg [facility] Urine specimen (specimen) 01/25/2011 1:19 PM CDT Christopher Ernst MD LAB - POINT OF CARE ORDERABLES [facility] * PATHOLOGY/GENETICS HISTORICAL-ONBASE (02/04/2009) 02/04/2009 Narrative [facility] - 02/04/2009 4:04 PM CDT Ordered by an unspecified provider. Historical Provider LAB - CHEMISTRY O RDERABLES [facility] Care Teams Captain Of Guards Relationship Specialty Start Date End Date Abhay Vu MD [address] [place] [id number] PCP - General 03/04/17
[2024-06-07 12:21] VITALS: BP 142/96; PULSE 64; RESP 16; TEMP 36.2; O2SAT 100
--- NOTE | 2024-06-07 13:07 | ED.URI ---
HPI - URI/Sore Throat General Chief Complaint: Upper Respiratory Infection Stated Complaint: cold symptoms and fever Time Seen by Provider: 06/07/24 13:07 Source: patient, RN notes reviewed and old records reviewed Mode of arrival: ambulatory Limitations: no limitations History of Present Illness HPI Narrative: Patient diagnosed with influenza last week presents with continued fever and cough. He reports that his daughter tested positive for COVID shortly after he tested positive for influenza. He feels as though he may have picked COVID from his daughter. He states that he feels overall much better, but continues with intermittent fever and dry cough. He reports cough is not as bad as it had been. States he feels it is fairly well controlled with qybx-dlz-vpvjynm cough medication. He reports that he did not go to work yesterday because he was febrile, says his work is requiring a new work note as a result. That is why he is here today. He is not in any distress Related Data Home Medications ?Medication ?Instructions ?Recorded ?Confirmed ?Last Taken ?Type testosterone cypionate 200 mg/mL mg 05/30/24 Unknown History intramuscular oil Allergies Allergy/AdvReac Type Severity Reaction Status Date / Time No Known Allergies Allergy Verified 05/30/24 11:05 Review of Systems Review of Systems: All systems reviewed & are unremarkable except as noted in HPI and below Constitutional: Constitutional: Reports no additional constitutional complaints and Reports fever(s) ENT: Reports system reviewed and no additional complaints, except as documented Cardiovascular: Cardiovascular: Reports no additional cardiovascular complaints Respiratory: Respiratory: Reports no additional respiratory complaints and Reports cough Gastrointestinal: Gastrointestinal: Reports no additional gastrointestinal complaints [facility] Surgical History Surgical History S/P left knee arthroscopy Status post left rotator cuff repair Family History Family History Mother Asthma Family history of arthritis Family history of allergic disorder Sibling Asthma Grandparent Carcinoma of colon Family history of heart disease in male family member before age 55 Social History Social History Smoking status: Former smoker Second hand tobacco smoke exposure: No Smoking end date: 04/29/03 Alcohol intake: current Comments At the time of my signature, I reviewed and agree with the nursing past medical, surgical, social, and family history. There is no relevant family history pertinent to the patient complaint. Exam Const: General: cooperative, no acute distress, alert and awake Orientation/consciousness: oriented to person, oriented to place and oriented to time HENMT: Head: normal to inspection Resp: Effort & Inspection: normal respiratory effort and able to speak in complete sentences Auscultation: clear to auscultation bilaterally, no crackles, no rales, no rhonchi and no wheezes Cardio: Palpation: normal PMI Rate: regular rate Rhythm: regular rhythm Heart sounds: S1 normal heart sound present and S2 normal heart sound present Neuro: General: oriented to person, oriented to place and oriented to time Cranial nerves: Yes CN's II-XII intact bilaterally Psych: Appearance: grossly normal Thought process: Normal thought process present Insight: Good insight present (Psych) Judgement: Good judgement present (Psych) Course Course Level of Care: Express Care Visit Vital Signs Vital signs: Vital Signs Temperature 97.2 F L 06/07/24 12:21 Pulse Rate 64 06/07/24 12:21 Respiratory Rate 16 06/07/24 12:21 Blood Pressure 142/96 H 06/07/24 12:21 Pulse Oximetry 100 06/07/24 12:21 Oxygen Delivery Room Air 06/07/24 12:21 Temperature 97.2 F L 06/07/24 12:21 Pulse Rate 64 06/07/24 12:21 Respiratory Rate 16 06/07/24 12:21 Blood Pressure 142/96 H 06/07/24 12:21 Pulse Oximetry 100 06/07/24 12:21 Oxygen Delivery Room Air 06/07/24 12:21 Reviewed MDM - URI/Sore Throat MDM Narrative Medical decision making narrative: reassuring physical exam. Patient not in any distress. New work note provided per request. Discharge instructions reviewed with patient, as well as provided in writing per nursing staff. The instructions also include specific and strict return/GO TO THE ER as well as f/u information. All questions have been answered, and the patient deny any further questions with discharge and discharge plan. Some parts of this dictation were generated by voice recognition software and may contain typographical and/or grammatical inaccuracies. Differential Diagnosis Differential diagnosis: Likely upper respiratory infection, viral infection and influenza Medical Records Attestation: I reviewed the patient's medical records. Discharge Plan Discharge Clinical Impression: Viral infection Patient Disposition: Home, Self-Care Condition: Stable Instructions: Antibiotic Form, Influenza (ED) Additional Instructions: Continue supportive care measures at home. follow-up with primary care provider. Emergency department for new or worsening symptoms Patient Language: Korean Prescriptions: No Action testosterone cypionate 200 mg/mL oil oseltamivir [Tamiflu] 75 mg capsule 75 mg PO Q12H 5 Days Qty: 10 0RF Follow-up/Referrals: Cody,MD Paul [Primary Care Provider] - 1 Week Stand Alone Forms: Work/School Release IP Time of Disposition: 13:14
== END 2024-06-07 13:24 | disposition home or self-care (01) ==
PROVIDERS: Emergency Provider Nurse Practitioner Family; PCP Family Medicine
DX: B34.9 Viral infection, unspecified (principal)
CPT/HCPCS: 99211; G0463